=== PATIENT | female | born 1985 | race Caucasian/White ===

== ENCOUNTER 2018-05-13 02:54 | Emergency (ER) | payer MEDICAID ==
[~2018-05-13] VITALS: Ht 167.6 cm; Wt 96.0 kg
[2018-05-13 03:02] VITALS: BP 115/68
== END 2018-05-13 04:35 | disposition left against medical advice (07) ==
LOC: ER 02:54
DX: T78.40XA Allergy, unspecified, initial encounter (principal); X58.XXXA Exposure to other specified factors, initial encounter; Z53.21 Procedure and treatment not carried out due to patient leaving prior to being seen by health care provider

== ENCOUNTER 2018-10-13 14:53 | Emergency (ER) | payer MEDICAID ==
[~2018-10-13] VITALS: Ht 165.1 cm; Wt 156.0 kg
[2018-10-13 17:10] VITALS: BP 132/81
== END 2018-10-13 17:11 | disposition home or self-care (01) ==
LOC: ER 14:53
DX: R55 Syncope and collapse (principal); Z91.81 History of falling
CPT/HCPCS: 99283